=== PATIENT | male | born 1960 | race Caucasian/White ===

== ENCOUNTER 2019-12-30 10:08 | Inpatient (IN) | payer BC, OTHER ==
[2019-12-30] VITALS (22 sets, daily range): BP systolic 94–148; BP diastolic 54–76
[~2019-12-30] VITALS: Ht 177.8 cm; Wt 136.0 kg
[2019-12-30] MEDS ORDERED: SODIUM CHLORIDE 0.9% 1000ML 1,000 ML IV ONE (10:56)
[2019-12-30] MEDS ORDERED: ZOSYN 3.375GM+NS 50ML 50 ML IV ONE (10:57)
[2019-12-30 11:23] LABS: BASOPHILS % (AUTO) 0.5 % (0.0-5.0); EOSINOPHILS % (AUTO) 0.2 % (0.0-8.0); HEMATOCRIT 40.4 % (42-54); LYMPHOCYTES % (AUTO) 3.5 % (21.0-51.0); MEAN CORPUSCULAR HEMOGLOBIN 26.9 pg (27.0-33.0); MEAN CORPUSCULAR HGB CONC 33.4 g/dL (32.0-36.0); MEAN CORPUSCULAR VOLUME 80.5 fL (79-99); MONOCYTES % (AUTO) 4.6 % (3.0-13.0); NEUTROPHILS % (AUTO) 90.5 % (40.0-77.0); PLATELET COUNT (AUTO) 311 K/uL (130-400); RED BLOOD CELL COUNT(AUTO) 5.02 MIL/uL (4.50-6.20); RED CELL DISTRIBUTION WIDTH 13.1 % (11.0-15.5); WHITE BLOOD COUNT (AUTO) 16.6 K/uL (4.8-10.8)
[2019-12-30 11:30] LABS: CARBON DIOXIDE 24 mmol/L (21-32); CHLORIDE 93 mmol/L (101-111); CREATININE 1.5 mg/dL (0.5-1.5); GLOMERULAR FILTR. RATE CALC 51 mL/min (>60); GLUCOSE,RANDOM 381 mg/dL (70-105); POTASSIUM 3.5 mmol/L (3.5-5.1); SODIUM SERUM 130 mmol/L (136-145); UREA NITROGEN, BLOOD 21 mg/dL (7-18)
[2019-12-30 11:45] LABS: ALANINE AMINOTRANSFERASE 17 U/L (12-78); ASPARTATE AMINOTRANSFERASE 30 U/L (10-37); BILIRUBIN,TOTAL 0.6 mg/dL (0.2-1.0); MYOGLOBIN 362 ng/mL (10-92); TROPONIN I < 0.04 ng/mL (0.00-0.06)
[2019-12-30 11:51] LABS: ALBUMIN 2.1 g/dL (3.5-5.0)
[2019-12-30 11:55] LABS: CREATINE KINASE, TOTAL 421 U/L (21-232)
[2019-12-30 12:12] LABS: INR 1.16 (0.85-1.15); PARTIAL THROMBOPLASTIN TIME 37.2 SEC (26.3-35.5); PROTHROMBIN TIME 12.5 SEC (9.6-11.6)
[2019-12-30] MEDS ORDERED: INSULIN HUMULIN R 100 UNIT/ML 3ML ONE (13:02)
[2019-12-30] MEDS ORDERED: VANCOMYCIN PROTOCOL PER PHARMACY IV SCH (14:15)
[2019-12-30] MEDS ORDERED: RENAL DOSE IV PRN (14:15)
[2019-12-30] MEDS: ZOSYN 3.375GM+NS 50ML 50 ML IV SCH ×2 (14:15→22:56)
[2019-12-30] MEDS ORDERED: COMPOUND IV REFRIGERATED 1 EACH IVSOLN MISC PRN (14:30)
[2019-12-30 14:45] LABS: APPEARANCE,URINE Clear (CLEAR); BILIRUBIN,URINE Negative (NEGATIVE); COLOR,URINE Yellow (YELLOW); GLUCOSE, URINE (UA) Negative (NEGATIVE); KETONES,URINE Negative (NEGATIVE); LEUKOCYTE ESTERASE ,URINE Negative (NEGATIVE); NITRATE,URINE Negative (NEGATIVE); OCCULT BLOOD,URINE Negative (NEGATIVE); PH,URINE 7.5 (5.0-8.0); PROTEIN,URINE Negative (NEGATIVE); UROBILINOGEN,URINE 0.2 mg/dL (0.2-1.0)
[2019-12-30] MEDS ORDERED: LACTATED RINGERS 1000ML 1,000 ML IV ONE (14:56)
[2019-12-30] MEDS ORDERED: CLINDAMYCIN 600 MG/D5% WATER 50 ML IV ONE (14:56)
[2019-12-30] MEDS ORDERED: FAMOTIDINE/PF 20 MG/2 ML VIAL IV ONE ×2 (14:58→17:38)
[2019-12-30] MEDS ORDERED: INSULIN GLARGINE 100 UNITS/ML 10 ML VIAL SQ ONE (15:00)
[2019-12-30] MEDS: INSULIN HUMULIN R 100 UNIT/ML 3ML SQ SCH ×2 (15:00→21:00)
[2019-12-30] MEDS: CLINDAMYCIN 600 MG/D5% WATER 50 ML IV SCH ×2 (15:06→22:57)
[2019-12-30] MEDS: LACTATED RINGERS 1000ML 1,000 ML IV SCH (15:06)
[2019-12-30] MEDS: VANCOMYCIN 1.5 GM in SODIUM CHLORIDE 0.9% 250 ML IV SCH ×2 (15:11→23:04)
--- NOTE | 2019-12-30 16:09 | NUR ---
DCP: HOME SW spoke to pt's Rosaline Zuniga [phone]. Per prior to admit pt was independent of all ADLS, uses a cane for long distances, has no in home care services. PCP is Dr Bower at [facility] and he uses [facility] for rx. Plan is home at nd Addendum: 12/30/19 at 1611 by KHRIS BLACK Amended: Links added.
[2019-12-30] MEDS ORDERED: ROCURONIUM 10MG/1ML SYR 10 MG/ML ML ONE (16:31)
[2019-12-30] MEDS ORDERED: PROPOFOL 10 MG/ML 20ML VIAL IV ONE (16:31)
[2019-12-30] MEDS ORDERED: SUCCINYLCHOLINE CHLORIDE 20 MG/ML 10 ML VIAL ONE (16:31)
[2019-12-30] MEDS ORDERED: LIDOCAINE HCL MPF 1% 5ML VIAL ONE (16:31)
[2019-12-30] MEDS ORDERED: MIDAZOLAM HCL 1 MG/ML 2ML VIAL ONE ×2 (16:31→18:25)
[2019-12-30] MEDS ORDERED: FENTANYL CITRATE PF 50 MCG/1 ML 2ML VIAL ONE (16:32)
--- NOTE | 2019-12-30 17:00 | NUR ---
ASKED OT CALL SPOUSE- SHE STATES TO SW SHE WAS NOT GETTING AN IDEA ABOUT THE PLAN OF CARE. STATES WAS INFORMED BY PHONE BY SPOUSE THAT HE WAS GOING TO SURGERY IN JUST A LITTLE WHILE, BUT SHE DID NOT UNDERSTAND WHY OR WHAT THEY WERE DOING. D EXPLAINED PLAN OF CARE FOR PERINEAL INFECTIONS INCLUDING TYPE OF SURGERY IN A GENRAL WAY, EXPLAINED ROLE OF CM'S AND THAT HER WOULD HAVE A CM WHEN HE GOT TO HIS ROOM. VERBALIZED UNDERSTANDING OF THE INFORMATION GIVEN SPOUSE ASKED THAT MD R AND D LAB TECHNICIAN CALL WHEN SURGERY IS OVER,
[2019-12-30] MEDS ORDERED: GENTAMICIN SULFATE 80 MG/2 ML VIAL ONE (17:13)
[2019-12-30] MEDS ORDERED: VANCOMYCIN HCL 1 GM VIAL ONE (17:13)
[2019-12-30] MEDS ORDERED: GLYCOPYRROLATE 1 MG/5 ML SYRINGE ONE (17:34)
[2019-12-30] MEDS ORDERED: NEOSTIGMINE 5MG/5ML SYR IV ONE (17:34)
[2019-12-30 19:19] LABS: HEMATOCRIT 37.7 % (42-54); MEAN CORPUSCULAR HEMOGLOBIN 26.6 pg (27.0-33.0); MEAN CORPUSCULAR HGB CONC 31.8 g/dL (32.0-36.0); MEAN CORPUSCULAR VOLUME 83.6 fL (79-99); PLATELET COUNT (AUTO) 332 K/uL (130-400); RED BLOOD CELL COUNT(AUTO) 4.51 MIL/uL (4.50-6.20); RED CELL DISTRIBUTION WIDTH 13.3 % (11.0-15.5); WHITE BLOOD COUNT (AUTO) 17.5 K/uL (4.8-10.8)
[2019-12-30 19:33] LABS: HEMOGLOBIN A1C 10.7 % (4.0-6.0)
[2019-12-30 19:36] LABS: CREATININE 1.5 mg/dL (0.5-1.5); POTASSIUM 3.6 mmol/L (3.5-5.1)
[2019-12-30 19:42] LABS: BAND NEUTROPHILS % (MANUAL) 22 % (0-2); LYMPHOCYTES % (MANUAL) 4 % (22-44); MAN.DIFF COMMENT-IMPRESSION MANUAL DIFFERENTIAL; MONOCYTES % (MANUAL) 3 % (2-9); SEGMENTED NEUTROPHILS % 71 % (40-70)
--- NOTE | 2019-12-30 21:20 | NUR ---
SPOKE TO SPOUSE ON PHONE. ELVER FLORES [phone]. INFORMED SPOUSE OF PATIENTS I&D AND HIS CONDITION. SPOUSE PROVIDED INFORMATION FOR ADMISSION. PENDING MEDICATIONS.
--- NOTE | 2019-12-30 21:20 | NUR ---
PT ARRIVED VIA STRETCHER. PT AWAKE BUT DROWSY. DENIES PAIN. WOUND VAC ON INTERMITTENT SUCTION. CHADWICK SECURED TO LEG WAS PLACED IN OR. BED TO LOWEST LEVEL. CALL LIGHT WITHIN REACH.
[2019-12-31] MEDS: CLINDAMYCIN 600 MG/D5% WATER 50 ML IV SCH ×4 (02:50→21:26)
[2019-12-31] MEDS: LACTATED RINGERS 1000ML 1,000 ML IV SCH (03:05)
[2019-12-31] MEDS: INSULIN HUMULIN R 100 UNIT/ML 3ML SQ SCH ×4 (03:25→18:55)
[2019-12-31] MEDS ORDERED: SODIUM CHLORIDE 0.9% 1000ML 1,000 ML IV ONE (04:30)
[2019-12-31] MEDS ORDERED: ONDANSETRON HCL 4 MG/2 ML VIAL IVP PRN (05:00)
[2019-12-31] MEDS ORDERED: MEPERIDINE HCL/PF 25 MG/0.5 ML AMPUL IM PRN (05:00)
[2019-12-31] MEDS: ZOSYN 3.375GM+NS 50ML 50 ML IV SCH ×3 (06:15→21:27)
[2019-12-31] MEDS: SODIUM CHLORIDE 0.9% 1000ML 1,000 ML IV SCH ×4 (06:16→20:30)
[2019-12-31 07:11] LABS: BASOPHILS % (AUTO) 0.3 % (0.0-5.0); EOSINOPHILS % (AUTO) 0.1 % (0.0-8.0); HEMATOCRIT 31.5 % (42-54); MEAN CORPUSCULAR HEMOGLOBIN 26.2 pg (27.0-33.0); MEAN CORPUSCULAR HGB CONC 32.4 g/dL (32.0-36.0); MEAN CORPUSCULAR VOLUME 80.8 fL (79-99); MONOCYTES % (AUTO) 6.9 % (3.0-13.0); NEUTROPHILS % (AUTO) 85.3 % (40.0-77.0); PLATELET COUNT (AUTO) 266 K/uL (130-400); RED CELL DISTRIBUTION WIDTH 13.3 % (11.0-15.5); WHITE BLOOD COUNT (AUTO) 12.4 K/uL (4.8-10.8)
[2019-12-31 07:30] VITALS: BP 89/39
[2019-12-31 08:28] LABS: ALBUMIN 1.5 g/dL (3.5-5.0); BILIRUBIN,TOTAL 0.3 mg/dL (0.2-1.0); CREATININE 1.1 mg/dL (0.5-1.5); POTASSIUM 3.2 mmol/L (3.5-5.1); TOTAL PROTEIN, SERUM 5.5 g/dL (6.0-8.3)
[2019-12-31] MEDS ORDERED: INSULIN GLARGINE 100 UNITS/ML 10 ML VIAL SQ SCH (08:45)
[2019-12-31] MEDS: VANCOMYCIN 1.5 GM in SODIUM CHLORIDE 0.9% 250 ML IV SCH ×2 (08:55→21:27)
[2019-12-31] MEDS ORDERED: INSULIN GLARGINE 100 UNITS/ML 10 ML VIAL SQ ONE (09:00)
[2019-12-31 11:30] VITALS: BP 118/43
[2019-12-31] MEDS ORDERED: LIDOCAINE HCL-MPF 1% 2ML VIAL IV PRN (11:45)
[2019-12-31] MEDS ORDERED: POTASSIUM CHLORIDE 20MEQ/100ML 100 ML IV PRN (11:45)
[2019-12-31] MEDS ORDERED: POTASSIUM CHLORIDE 10% ELIXIR 20 MEQ/15 ML UDCUP PO PRN (11:45)
--- NOTE | 2019-12-31 13:10 | NUR ---
RECEIVED CALL FROM DR. GONG. STATES MADE AWARE OF CONSULT YESTERDAY BY DR. GAMBINO. PLAN IS TO "GO INTO SURGERY WITH DR. GAMBINO WHEN HE TAKES THE PT. BACK, EITHER TOMORROW OR SUNDAY."
--- NOTE | 2019-12-31 13:13 | NUR ---
DR. Lisa LOVE IN ROOM SPEAKING WITH PT. RE:PLAN OF CARE. QUESTIONS ANSWERED BY DR. LOVE.
[2019-12-31] MEDS ORDERED: PHARMACY COMMUNICATION MISC SCH (13:15)
[2019-12-31] MEDS ORDERED: CALCIUM CARBON 500MG CHEW TAB PO PRN (13:15)
[2019-12-31] MEDS ORDERED: MAG HYDROX/AL HYDROX/SIMETH ES 30 ML SUSP UDCUP PO SCH (13:34)
[2019-12-31 15:30] VITALS: BP 86/53
[2019-12-31] MEDS: POTASSIUM CHLORIDE 20 MEQ ERTAB PO PRN ×3 (16:55→21:26)
[2019-12-31 19:44] VITALS: BP 109/63
[2019-12-31 20:05] VITALS: BP 96/44
[2019-12-31 23:28] VITALS: BP 126/73
[2020-01-01] MEDS: CLINDAMYCIN 600 MG/D5% WATER 50 ML IV SCH ×4 (01:58→20:15)
[2020-01-01] MEDS: ACETAMINOPHEN 325 MG TAB PO PRN (01:59)
[2020-01-01] MEDS ORDERED: KETOROLAC TROMETHAMINE 30MG/ML ONE (02:07)
[2020-01-01 04:18] VITALS: BP 126/73
[2020-01-01] MEDS: SODIUM CHLORIDE 0.9% 1000ML 1,000 ML IV SCH ×2 (04:30→12:58)
[2020-01-01 05:30] LABS: BASOPHILS % (AUTO) 0.4 % (0.0-5.0); EOSINOPHILS % (AUTO) 1.2 % (0.0-8.0); LYMPHOCYTES % (AUTO) 9.4 % (21.0-51.0); MEAN CORPUSCULAR HEMOGLOBIN 26.4 pg (27.0-33.0); MEAN CORPUSCULAR HGB CONC 32.6 g/dL (32.0-36.0); MEAN CORPUSCULAR VOLUME 80.9 fL (79-99); MONOCYTES % (AUTO) 6.9 % (3.0-13.0); NEUTROPHILS % (AUTO) 79.8 % (40.0-77.0); PLATELET COUNT (AUTO) 252 K/uL (130-400); RED BLOOD CELL COUNT(AUTO) 3.83 MIL/uL (4.50-6.20); RED CELL DISTRIBUTION WIDTH 13.2 % (11.0-15.5); WHITE BLOOD COUNT (AUTO) 11.3 K/uL (4.8-10.8)
[2020-01-01 05:48] LABS: CREATININE 1.2 mg/dL (0.5-1.5); POTASSIUM 3.5 mmol/L (3.5-5.1)
[2020-01-01] MEDS: ZOSYN 3.375GM+NS 50ML 50 ML IV SCH ×2 (05:52→22:27)
[2020-01-01] MEDS: INSULIN HUMULIN R 100 UNIT/ML 3ML SQ SCH ×4 (06:00→20:57)
[2020-01-01 06:09] LABS: CRP QUANTITATIVE 297.9 mg/L (0.00-9.0)
[2020-01-01 08:00] VITALS: BP 117/62
[2020-01-01] MEDS: VANCOMYCIN 1.5 GM in SODIUM CHLORIDE 0.9% 250 ML IV SCH ×2 (09:59→22:57)
[2020-01-01 12:00] VITALS: BP 85/47
--- NOTE | 2020-01-01 13:11 | NUR ---
RD NOTIFICATION Pt admitted with Samir's Gangrene, Hx DM. Pt with 75gm CC, Heart Healthy diet order in place. Pt requesting nutritional supplement. Obesity Class III (BMI 43.0). Recommend Glucerna BID Recommend 500mg Vitamin C BID RD to continue to monitor. Please notify as additional nutrition concerns arise. Thank you. Addendum: 01/01/20 at [address] Amended: Links added.
[2020-01-01] MEDS: KETOROLAC TROMETHAMINE 30MG/ML IV PRN ×2 (13:43→21:08)
[2020-01-01 15:30] VITALS: BP 108/59
--- NOTE | 2020-01-01 16:28 | NUR ---
Called report to [facility] for patient to be transported to room 332. No s/s of distress noted at this time. Wound vac dressing changed with charge nurse at bedside due to being saturated after BM. Will reassess blood pressure and transport patient.
[2020-01-01 20:00] VITALS: BP 138/57
[2020-01-02] VITALS (27 sets, daily range): BP systolic 98–157; BP diastolic 35–69
[2020-01-02] MEDS: CALCIUM CARBON 500MG CHEW TAB PO PRN (01:20)
[2020-01-02] MEDS ORDERED: PHARMACY COMMUNICATION MISC SCH (02:30)
[2020-01-02] MEDS: CLINDAMYCIN 600 MG/D5% WATER 50 ML IV SCH ×4 (02:33→21:38)
[2020-01-02] MEDS: SODIUM CHLORIDE 0.9% 1000ML 1,000 ML IV SCH ×3 (04:30→13:54)
[2020-01-02] MEDS: KETOROLAC TROMETHAMINE 30MG/ML IV PRN ×3 (04:32→19:40)
[2020-01-02] MEDS: INSULIN HUMULIN R 100 UNIT/ML 3ML SQ SCH ×4 (05:29→21:00)
[2020-01-02] MEDS: ZOSYN 3.375GM+NS 50ML 50 ML IV SCH ×3 (05:44→21:38)
--- NOTE | 2020-01-02 06:10 | NUR ---
WOUND VAC CHANGED DUE TO LEAK, 2 BLACK FOAM SPONGES UTILIZED. PT TOLERATED WELL. INFORMED MASHA LANGFORDP, PT WITH FREQUENT BOWEL MOVEMENTS. NEW ORDERS RECEIVED TO BE CARRIED OUT. CONSENT FOR SCHEDULED PROCEDURE SIGNED BY PATIENT.
[2020-01-02] MEDS: VANCOMYCIN 1.5 GM in SODIUM CHLORIDE 0.9% 250 ML IV SCH ×2 (13:51→21:39)
--- NOTE | 2020-01-02 14:10 | NUR ---
PROCEDURE SHARRI PINEDA RN TRANSFERRED PATIENT TO HOLDING AREA FOR I&D BY DR. GONG.
[2020-01-02 14:24] LABS: MEAN CORPUSCULAR HEMOGLOBIN 26.6 pg (27.0-33.0); MEAN CORPUSCULAR HGB CONC 32.2 g/dL (32.0-36.0); MEAN CORPUSCULAR VOLUME 82.7 fL (79-99); PLATELET COUNT (AUTO) 304 K/uL (130-400); RED BLOOD CELL COUNT(AUTO) 3.87 MIL/uL (4.50-6.20); RED CELL DISTRIBUTION WIDTH 14.1 % (11.0-15.5); WHITE BLOOD COUNT (AUTO) 11.8 K/uL (4.8-10.8)
[2020-01-02 14:37] LABS: CREATININE 0.9 mg/dL (0.5-1.5); POTASSIUM 4.4 mmol/L (3.5-5.1)
[2020-01-02 14:38] LABS: INR 1.02 (0.85-1.15)
[2020-01-02] MEDS ORDERED: FAMOTIDINE/PF 20 MG/2 ML VIAL IV ONE (14:40)
[2020-01-02] MEDS ORDERED: KETAMINE 50MG/ML SYRINGE 50 MG/ML DISP.SYRIN IV ONE (14:49)
[2020-01-02] MEDS ORDERED: LIDOCAINE PF 2% 5ML ABBOJECT ONE (14:50)
[2020-01-02] MEDS ORDERED: SUCCINYLCHOLINE CHLORIDE 20 MG/ML 10 ML VIAL ONE (14:50)
[2020-01-02] MEDS ORDERED: ROCURONIUM 10MG/1ML SYR 10 MG/ML ML ONE (14:51)
[2020-01-02] MEDS ORDERED: PROPOFOL 10 MG/ML 20ML VIAL IV ONE (14:51)
[2020-01-02] MEDS ORDERED: PHENYLEPHRINE HCL 10 MG/ML 1ML VIAL IV ONE (15:13)
[2020-01-02] MEDS ORDERED: GENTAMICIN SULFATE 80 MG/2 ML VIAL ONE (15:20)
[2020-01-02 15:25] LABS: BAND NEUTROPHILS % (MANUAL) 10 % (0-2); EOSINOPHILS % (MANUAL) 2 % (1-6); LYMPHOCYTES % (MANUAL) 10 % (22-44); MAN.DIFF COMMENT-IMPRESSION MANUAL DIFFERENTIAL; MONOCYTES % (MANUAL) 3 % (2-9); SEGMENTED NEUTROPHILS % 75 % (40-70)
[2020-01-02 15:26] LABS: PLATELET MORPHOLOGY COMMENT LARGE PLTS PRESENT
[2020-01-02] MEDS ORDERED: ONDANSETRON HCL 4 MG/2 ML VIAL ONE (15:33)
[2020-01-02] MEDS ORDERED: GLYCOPYRROLATE 1 MG/5 ML SYRINGE ONE ×2 (15:35→16:10)
[2020-01-02] MEDS ORDERED: NEOSTIGMINE 5MG/5ML SYR IV ONE ×2 (15:35→16:10)
[2020-01-02] MEDS ORDERED: SUGAMMADEX SODIUM 200 MG/2 ML VIAL IV ONE (16:17)
[2020-01-02] MEDS ORDERED: MEPERIDINE-PF 25 MG/ML SYG ONE (16:37)
[2020-01-02] MEDS ORDERED: MORPHINE SULFATE 2 MG/ML 1ML SYG ONE (16:46)
--- NOTE | 2020-01-02 17:30 | NUR ---
REPORT RECEIVED FROM [facility] (PACU), PATIENT S/P PROCEDURE BY DR. QUAN GONG. PATIENT S/P I&D TO PERINEAL AND SCROTAL AREA WITH WOUND VAC PLACEMENT AT 125mmHg. RECTAL TUBE PLACED. PATIENT STABLE AT THIS TIME.
[2020-01-03] VITALS (7 sets, daily range): BP systolic 108–123; BP diastolic 48–64
[2020-01-03] MEDS: KETOROLAC TROMETHAMINE 30MG/ML IV PRN ×2 (03:53→19:55)
[2020-01-03] MEDS: CLINDAMYCIN 600 MG/D5% WATER 50 ML IV SCH ×4 (03:56→19:55)
[2020-01-03 04:32] LABS: BASOPHILS % (AUTO) 0.4 % (0.0-5.0); EOSINOPHILS % (AUTO) 0.9 % (0.0-8.0); HEMATOCRIT 30.8 % (42-54); LYMPHOCYTES % (AUTO) 8.4 % (21.0-51.0); MEAN CORPUSCULAR HEMOGLOBIN 26.1 pg (27.0-33.0); MEAN CORPUSCULAR HGB CONC 31.5 g/dL (32.0-36.0); MEAN CORPUSCULAR VOLUME 82.8 fL (79-99); MONOCYTES % (AUTO) 5.6 % (3.0-13.0); NEUTROPHILS % (AUTO) 78.6 % (40.0-77.0); PLATELET COUNT (AUTO) 321 K/uL (130-400); RED BLOOD CELL COUNT(AUTO) 3.72 MIL/uL (4.50-6.20); RED CELL DISTRIBUTION WIDTH 14.2 % (11.0-15.5); WHITE BLOOD COUNT (AUTO) 14.2 K/uL (4.8-10.8)
[2020-01-03 04:46] LABS: ALBUMIN 1.4 g/dL (3.5-5.0); BILIRUBIN,TOTAL 0.3 mg/dL (0.2-1.0); POTASSIUM 3.9 mmol/L (3.5-5.1); TOTAL PROTEIN, SERUM 5.3 g/dL (6.0-8.3)
[2020-01-03] MEDS: ZOSYN 3.375GM+NS 50ML 50 ML IV SCH ×3 (05:43→19:55)
[2020-01-03] MEDS: INSULIN HUMULIN R 100 UNIT/ML 3ML SQ SCH ×4 (06:25→20:56)
[2020-01-03] MEDS: VANCOMYCIN 1.5 GM in SODIUM CHLORIDE 0.9% 250 ML IV SCH ×2 (09:00→20:58)
[2020-01-03] MEDS: ACETAMINOPHEN 325 MG TAB PO PRN ×2 (09:08→16:27)
[2020-01-03] MEDS: SODIUM CHLORIDE 0.9% 1000ML 1,000 ML IV SCH (11:50)
[2020-01-04] MEDS: CLINDAMYCIN 600 MG/D5% WATER 50 ML IV SCH ×4 (02:47→17:20)
[2020-01-04 04:00] VITALS: BP 145/64
[2020-01-04 04:05] LABS: ALBUMIN 1.5 g/dL (3.5-5.0); BILIRUBIN,TOTAL 0.3 mg/dL (0.2-1.0); POTASSIUM 4.1 mmol/L (3.5-5.1); TOTAL PROTEIN, SERUM 5.4 g/dL (6.0-8.3)
[2020-01-04 04:06] LABS: BASOPHILS % (AUTO) 0.7 % (0.0-5.0); EOSINOPHILS % (AUTO) 2.5 % (0.0-8.0); LYMPHOCYTES % (AUTO) 9.5 % (21.0-51.0); MEAN CORPUSCULAR HEMOGLOBIN 26.3 pg (27.0-33.0); MEAN CORPUSCULAR HGB CONC 31.6 g/dL (32.0-36.0); MEAN CORPUSCULAR VOLUME 83.1 fL (79-99); MONOCYTES % (AUTO) 4.3 % (3.0-13.0); NEUTROPHILS % (AUTO) 73.5 % (40.0-77.0); PLATELET COUNT (AUTO) 350 K/uL (130-400); RED BLOOD CELL COUNT(AUTO) 3.73 MIL/uL (4.50-6.20); WHITE BLOOD COUNT (AUTO) 13.7 K/uL (4.8-10.8)
[2020-01-04] MEDS: ZOSYN 3.375GM+NS 50ML 50 ML IV SCH ×3 (04:56→20:04)
[2020-01-04] MEDS: SODIUM CHLORIDE 0.9% 1000ML 1,000 ML IV SCH ×2 (04:57→17:12)
[2020-01-04] MEDS: INSULIN HUMULIN R 100 UNIT/ML 3ML SQ SCH ×4 (06:01→20:49)
[2020-01-04] MEDS: CALCIUM CARBON 500MG CHEW TAB PO PRN (06:13)
[2020-01-04] MEDS ORDERED: MAG HYDROX/AL HYDROX/SIMETH ES 30 ML SUSP UDCUP ONE (07:32)
[2020-01-04 08:00] VITALS: BP 148/75
[2020-01-04] MEDS: ACETAMINOPHEN 325 MG TAB PO PRN ×2 (08:26→14:43)
[2020-01-04] MEDS: VANCOMYCIN 1.5 GM in SODIUM CHLORIDE 0.9% 250 ML IV SCH ×2 (10:32→20:03)
[2020-01-04 12:00] VITALS: BP 130/66
[2020-01-04 16:00] VITALS: BP 146/74
[2020-01-04] MEDS ORDERED: FERROUS SULFATE 325 MG TABLET.DR ONE (18:31)
[2020-01-04 19:25] VITALS: BP 131/52
[2020-01-04] MEDS: ENOXAPARIN SODIUM 120 MG/0.8ML SQ SCH (20:03)
[2020-01-04] MEDS: FERROUS SULFATE 325 MG TABLET.DR PO SCH (20:04)
[2020-01-04] MEDS: MAG HYDROX/AL HYDROX/SIMETH ES 30 ML SUSP UDCUP PO PRN (20:27)
[2020-01-04] MEDS: KETOROLAC TROMETHAMINE 30MG/ML IV PRN (23:02)
[2020-01-04 23:26] VITALS: BP 142/58
[2020-01-05] MEDS: CLINDAMYCIN 600 MG/D5% WATER 50 ML IV SCH ×2 (01:29→06:04)
[2020-01-05 03:15] VITALS: BP 117/55
[2020-01-05 03:58] LABS: BASOPHILS % (AUTO) 0.6 % (0.0-5.0); LYMPHOCYTES % (AUTO) 13.4 % (21.0-51.0); MEAN CORPUSCULAR HGB CONC 32.1 g/dL (32.0-36.0); NEUTROPHILS % (AUTO) 71.6 % (40.0-77.0); NUCLEATED RED BLOOD CELLS 0.2 % (0.0-0.19); PLATELET COUNT (AUTO) 363 K/uL (130-400); RED BLOOD CELL COUNT(AUTO) 3.58 MIL/uL (4.50-6.20); RED CELL DISTRIBUTION WIDTH 14.1 % (11.0-15.5); WHITE BLOOD COUNT (AUTO) 10.9 K/uL (4.8-10.8)
[2020-01-05 04:13] LABS: ALBUMIN 1.3 g/dL (3.5-5.0); BILIRUBIN,TOTAL 0.2 mg/dL (0.2-1.0); CREATININE 1.1 mg/dL (0.5-1.5); POTASSIUM 3.8 mmol/L (3.5-5.1); TOTAL PROTEIN, SERUM 5.1 g/dL (6.0-8.3)
[2020-01-05] MEDS: ZOSYN 3.375GM+NS 50ML 50 ML IV SCH ×3 (04:14→21:09)
[2020-01-05] MEDS: INSULIN HUMULIN R 100 UNIT/ML 3ML SQ SCH ×4 (06:03→21:00)
--- NOTE | 2020-01-05 06:35 | NUR ---
BRIJESH SANFORD AT THE BEDSIDE. LET HIM KNOW ABOUT YESTERDAY FEVER OF 101.3. HE IS AWARE. NO MORE FEVERS. HE ORDERED TO REMOVE IV NS OF 125 ML/HR
[2020-01-05 08:00] VITALS: BP 127/57
[2020-01-05] MEDS ORDERED: ENOXAPARIN SODIUM 120 MG/0.8ML SQ SCH (09:00)
[2020-01-05] MEDS: FERROUS SULFATE 325 MG TABLET.DR PO SCH ×3 (09:25→21:09)
[2020-01-05] MEDS: FOLIC ACID 1 MG TABLET PO SCH (09:25)
[2020-01-05] MEDS: VANCOMYCIN 1.5 GM in SODIUM CHLORIDE 0.9% 250 ML IV SCH (09:25)
[2020-01-05] MEDS: ENOXAPARIN SODIUM 120 MG/0.8ML SQ SCH (09:26)
--- NOTE | 2020-01-05 10:56 | NUR ---
PT ON 3 ANTIBIOTICS; DR. LOVE AWARE OKAY TO D/C CLYNDA. ORDER ENTERED. YET ADDED FLAGYL.
--- NOTE | 2020-01-05 11:08 | NUR ---
Dr. Rueda paged re; plans for wound vacc pending call back.
[2020-01-05 12:00] VITALS: BP 151/77
[2020-01-05] MEDS: METRONIDAZOLE 500MG/100ML BAG 100 ML IV SCH ×2 (14:08→21:09)
[2020-01-05 16:00] VITALS: BP 121/46
--- NOTE | 2020-01-05 16:05 | NUR ---
Dr. Rueda paged re; plans for wound vacc dressing According to wound care team black sponge is secured to patient with tracey as per patient Dr. Rueda will be taking patient back to surgery but no orders were entered.
--- NOTE | 2020-01-05 16:27 | NUR ---
[facility] consult Attempted to change wound vac as per consult/order. Upon removal of drape, black foam was found to be held in place by tracey. Spoke with [facility], who states there are no orders to remove tracey. Drape was reapplied and adequate seal was obtained. [facility] to be notified when order to remove tracey is obtained or prn.
[2020-01-05] MEDS: KETOROLAC TROMETHAMINE 30MG/ML IV PRN (16:36)
--- NOTE | 2020-01-05 17:36 | NUR ---
CM Note: [facility] pending approval CM spoke to pt's spouse discussed MD recommendations for LTAC, spouse agreeable, telephone consent obtained ROSITA for [facility]. Faxed order, clinicals, Covid Assessment, Nursing transfer assessment, confirmation received. Spoke to jorge Livingston pending approval at this time. Primary nurse aware. EMS filled out, pending to be faxed w/current date once placement secured. Primary nurse aware. CM to cont to follow up.
--- NOTE | 2020-01-05 18:20 | NUR ---
DR. GAMBINO CALLED BACK RE; WOUND VACC OKAY TO REMOVE SHALONDA WITH NEXT DRESSING CHANGE.
[2020-01-05 20:01] VITALS: BP 137/64
[2020-01-05] MEDS: VANCOMYCIN 1.25 GM in SODIUM CHLORIDE 0.9% 250 ML IV SCH (21:09)
[2020-01-05 23:21] VITALS: BP 143/62
[2020-01-06] MEDS: MAG HYDROX/AL HYDROX/SIMETH ES 30 ML SUSP UDCUP PO PRN ×3 (02:45→18:33)
[2020-01-06 04:12] VITALS: BP 134/62
[2020-01-06] MEDS: ZOSYN 3.375GM+NS 50ML 50 ML IV SCH ×2 (05:07→14:31)
[2020-01-06] MEDS: METRONIDAZOLE 500MG/100ML BAG 100 ML IV SCH ×2 (05:07→13:16)
[2020-01-06] MEDS: INSULIN HUMULIN R 100 UNIT/ML 3ML SQ SCH ×3 (05:14→15:55)
[2020-01-06 05:19] LABS: BASOPHILS % (AUTO) 0.4 % (0.0-5.0); EOSINOPHILS % (AUTO) 2.4 % (0.0-8.0); HEMATOCRIT 31.7 % (42-54); LYMPHOCYTES % (AUTO) 10.4 % (21.0-51.0); MEAN CORPUSCULAR HEMOGLOBIN 26.7 pg (27.0-33.0); MEAN CORPUSCULAR HGB CONC 32.8 g/dL (32.0-36.0); MEAN CORPUSCULAR VOLUME 81.3 fL (79-99); MONOCYTES % (AUTO) 4.8 % (3.0-13.0); NEUTROPHILS % (AUTO) 77.3 % (40.0-77.0); NUCLEATED RED BLOOD CELLS 0.2 % (0.0-0.19); PLATELET COUNT (AUTO) 458 K/uL (130-400); RED CELL DISTRIBUTION WIDTH 14.1 % (11.0-15.5); WHITE BLOOD COUNT (AUTO) 11.2 K/uL (4.8-10.8)
[2020-01-06 05:40] LABS: CREATININE 1.8 mg/dL (0.5-1.5); POTASSIUM 4.1 mmol/L (3.5-5.1)
[2020-01-06] MEDS ORDERED: POTASSIUM CHLORIDE 20 MEQ ERTAB PO PRN (07:30)
[2020-01-06] MEDS ORDERED: POTASSIUM CHLORIDE 10% ELIXIR 20 MEQ/15 ML UDCUP PO PRN (07:30)
[2020-01-06] MEDS ORDERED: VANCOMYCIN PROTOCOL PER PHARMACY IV SCH (07:30)
[2020-01-06] MEDS ORDERED: POTASSIUM CHLORIDE 20MEQ/100ML 100 ML IV PRN ×2 (07:30)
[2020-01-06] MEDS ORDERED: LIDOCAINE HCL-MPF 1% 2ML VIAL IV PRN ×2 (07:30)
[2020-01-06 08:00] VITALS: BP 139/78
[2020-01-06] MEDS: FOLIC ACID 1 MG TABLET PO SCH (08:14)
[2020-01-06] MEDS: FERROUS SULFATE 325 MG TABLET.DR PO SCH ×2 (08:14→13:16)
[2020-01-06] MEDS: VANCOMYCIN 1.25 GM in SODIUM CHLORIDE 0.9% 250 ML IV SCH (08:15)
[2020-01-06] MEDS: ENOXAPARIN SODIUM 120 MG/0.8ML SQ SCH (09:51)
[2020-01-06 12:00] VITALS: BP 136/71
--- NOTE | 2020-01-06 12:41 | NUR ---
CM Note: [facility] pending approval CM spoke to [facility], verbalized submitted request to insurance, pending to see if ins has waiver. Pt pending approval at this time. Primary nurse aware. CM to cont to follow up.
[2020-01-06 16:00] VITALS: BP 139/76
--- NOTE | 2020-01-06 16:22 | NUR ---
REPORT TO [facility] TELEPHONE REPORT WAS GIVEN TO [facility]ST D[facility] AT [facility]. PATIENT WILL BE GOING WITH IV, CHADWICK CATHETER, WOUND VAC AND RECTAL TUBE. CHART HAS BEEN COPIED. EMS HAS BEEN SET UP FOR TRANSFER BY [facility]. PATIENT HAS BEEN MADE AWARE ACCEPTANCE AND IS IN AGREEMENT WITH TRANSFER TODAY. PENDING EMS ARRIVAL.
[2020-01-06] MEDS ORDERED: HYDROCODONE/ACETAMINOPHEN 5/325 MG TAB PO STA (18:14)
[2020-01-06 20:00] VITALS: BP 134/70
--- NOTE | 2020-01-07 00:55 | NUR ---
DISCHARGE PATIENT DISCHARGED TO [facility] VIA EMS TRANSPORT. PATIENT ASSISTED ONTO EMS STRETCHER AND ALL BELONGINGS AND PAPERWORK TAKEN WITH HIM. ALL QUESTION AND CONCERNS ADDRESSED.
== END 2020-01-07 00:50 | DRG 854 ==
LOC: EDH 10:08 → EDHIP 10:09 → 2AH 19:23 → 3AH 01-01 16:43
PROVIDERS: ADMIT Internal Medicine; ATTEND Internal Medicine
PROC: 0JBB0ZZ Excision of Perineum Subcutaneous Tissue and Fascia, Open Approach (ICD-10-PCS; 2019-12-30)
PROC: 0VB50ZZ Excision of Scrotum, Open Approach (ICD-10-PCS; 2019-12-30)
PROC: 0JB90ZZ Excision of Buttock Subcutaneous Tissue and Fascia, Open Approach (ICD-10-PCS; principal; 2019-12-30 16:21)
PROC: 0JBB0ZZ Excision of Perineum Subcutaneous Tissue and Fascia, Open Approach (ICD-10-PCS; 2020-01-02)
DX: A41.50 Gram-negative sepsis, unspecified (principal); N17.9 Acute kidney failure, unspecified; Z68.41 Body mass index [BMI] 40.0-44.9, adult; N49.3 Fournier gangrene; E66.01 Morbid (severe) obesity due to excess calories; E11.649 Type 2 diabetes mellitus with hypoglycemia without coma; E11.65 Type 2 diabetes mellitus with hyperglycemia; Z20.828 Contact with and (suspected) exposure to other viral communicable diseases; E87.6 Hypokalemia; D64.9 Anemia, unspecified; I10 Essential (primary) hypertension; K59.00 Constipation, unspecified; N50.89 Other specified disorders of the male genital organs; Z79.4 Long term (current) use of insulin; Z93.3 Colostomy status; Z83.3 Family history of diabetes mellitus; Z82.49 Family history of ischemic heart disease and other diseases of the circulatory system
CPT/HCPCS: 36415; 71045; 72192; 80048; 80053; 80202; 81003; 82550; 82728; 82948; 83036; 83605; 83615; 83874; 84145; 84484; 85025; 85378; 85610; 85730; 86140; 86850; 86900; 86901; 87040; 87070; 87076; 87077; 87088; 87186; 87205; 87507; 93005; A4330; A4344; A4606; G0378; J0330; J1580; J1650; J1815; J1885; J2001; J2175; J2250; J2370; J2405; J2543; J2704; J2710; J3010; J3370; J3490; J7030; J7050; J7120; U0003

== ENCOUNTER 2020-01-16 22:08 | Emergency (ER) | payer BC | END 2020-01-17 02:16 | disposition home or self-care (01) | LOC: EDH 22:08 | DX: T83.198A Other mechanical complication of other urinary devices and implants, initial encounter (principal); E11.9 Type 2 diabetes mellitus without complications; I10 Essential (primary) hypertension; Y73.8 Miscellaneous gastroenterology and urology devices associated with adverse incidents, not elsewhere classified; Y92.89 Other specified places as the place of occurrence of the external cause | CPT/HCPCS: 51701; 51705 ==

== ENCOUNTER → 2022-11-23 | Outpatient (CLI) | payer BC ==
[~2022-11-23] MED LIST: IOHEXOL 350 MG/ML 100ML INFUS..BTL IV ONE; METOPROLOL TARTRATE 1 MG/ML 5ML VIAL IV ONE
== END | disposition home or self-care (01) ==
LOC: RAH 08:11
PROVIDERS: ATTEND Student in an Organized Health Care Education/Training Program
DX: I25.10 Atherosclerotic heart disease of native coronary artery without angina pectoris (principal)
CPT/HCPCS: 75574; J3490; Q9967